=== PATIENT | female | born 1970 | race Caucasian/White ===

== ENCOUNTER 2018-01-29 09:11 | Day surgery (SDC) | payer OTHER ==
[2018-01-29] MEDS ORDERED: Midazolam* 1 MG/ML 2 ML VIAL (2 MG) ONE ×2 (09:52→09:58)
[2018-01-29 10:50] VITALS: BP 108/53
[2018-01-29] MEDS ORDERED: Neomycin/Polymy/Dex OPHTH.OIN* 3.5 GM ONE (11:56)
[2018-01-29] MEDS ORDERED: Povidone Iodine 5% OPTH* 30 ML BTL ONE (11:56)
[2018-01-29] MEDS ORDERED: Phenylephrine 2.5% OPTH.SOL* 2 ML BTL ONE (11:56)
[2018-01-29] MEDS ORDERED: Cyclopentolate 1% OPTH.SOL* 2 ML BTL ONE (11:56)
[2018-01-29] MEDS ORDERED: Tetracaine 0.5% OPTH.SOL 4 ML* 1 DROP BTL ONE (11:56)
[2018-01-29] MEDS ORDERED: Lidocaine 1% MPF* 2 ML VIAL ONE (11:56)
[2018-01-29] MEDS ORDERED: Tropicamide 1% OPTH.SOL* BTL ONE (11:56)
[2018-01-29] MEDS ORDERED: Ketorolac 0.5% OPHTH (NF) 0.5 % 5 ML BTL ONE (11:56)
[2018-01-29] MEDS ORDERED: acetaZOLAMIDE TAB* 250 MG ONE (11:56)
--- NOTE | 2018-01-30 10:07 | OP ---
DATE OF OPERATION: 01/29/18 - [facility] DATE OF : 66 SURGEON: Quinton Inman MD ANESTHESIA: Monitored anesthesia care. PRE-OP DIAGNOSIS: Cataract, right eye. POST-OP DIAGNOSIS: Cataract, right eye. OPERATIVE PROCEDURE: Extracapsular cataract extraction of the right eye with intraocular lens implant. IMPLANTS: SN60WF 25.0 diopter lens to the right eye. COMPLICATIONS: None. DESCRIPTION OF PROCEDURE: The patient was given phenylephrine 2.5% and cyclopentolate 1% eye drops to the operative eye in the preoperative area. The patient was brought to the operating room where a time-out was taken to identify the correct patient, site, and side of surgery. The patient's right eye was prepped and draped in the usual sterile fashion with 5% Betadine. A second time- out was taken to verify the correct patient, site, and side of surgery and correct lens selection. A lid speculum was placed to the right eye. A 1-mm paracentesis blade was used to make a clear corneal incision in the superotemporal position. Preservative-free 1% lidocaine was injected into the anterior chamber. DisCoVisc was then injected into the anterior chamber. A 2.75 mm keratome blade was used to make a triplanar incision at the inferotemporal position. A cystotome initiated a capsulorrhexis which was completed with Utrata forceps in a continuous and curvilinear manner. Hydrodissection of the lens was performed with BSS on a cannula. The lens could be spun in the capsular bag. The phacoemulsification handpiece was used with a [id number] technique to remove the nucleus in its entirety with 6.36 CDE. The I/A handpiece then removed the residual cortical lens material. DisCoVisc was injected to inflate the capsular bag. The planned SN60WF 25.0 diopter lens was injected in the capsular bag. The residual DisCoVisc was removed from the eye with the I/A handpiece. The corneal incisions were hydrated and no leaks occurred at physiologic pressure around 20 mmHg per palpation. The lid speculum was removed and drapes removed. Maxitrol ointment was placed on the surface of the operative eye. An adhesive patch and shield were then placed on the operative eye. The patient was taken to the postoperative area in stable condition. [id number] #: [id number] MTDD
== END 2018-01-29 10:50 | disposition home or self-care (01) ==
LOC: OREAST 09:11 → MERGE 11:15
PROVIDERS: ATTEND Student in an Organized Health Care Education/Training Program
DX: H25.811 Combined forms of age-related cataract, right eye (principal); E11.9 Type 2 diabetes mellitus without complications; Z79.4 Long term (current) use of insulin; I10 Essential (primary) hypertension; Z68.41 Body mass index [BMI] 40.0-44.9, adult; F17.210 Nicotine dependence, cigarettes, uncomplicated
CPT/HCPCS: A9270-GY; J2250; V2632

== ENCOUNTER 2018-02-05 07:07 | Day surgery (SDC) | payer OTHER ==
[~2018-02-05 07:07] MED LIST: Acetaminophen TAB* 325 MG PO PRN; Buffered Lidocaine 0.9% SYRIN* 5 ML/SYR SYRINGE INTRADERM ONE
[2018-02-05] MEDS ORDERED: Midazolam* 1 MG/ML 2 ML VIAL (2 MG) ONE ×2 (07:47→08:06)
[2018-02-05] MEDS ORDERED: acetaZOLAMIDE TAB* 250 MG ONE (07:50)
[2018-02-05] MEDS ORDERED: Cyclopentolate 1% OPTH.SOL* 2 ML BTL ONE (07:50)
[2018-02-05] MEDS ORDERED: Lidocaine 1% MPF* 2 ML VIAL ONE (07:50)
[2018-02-05] MEDS ORDERED: Phenylephrine 2.5% OPTH.SOL* 2 ML BTL ONE (07:50)
[2018-02-05] MEDS ORDERED: Tropicamide 1% OPTH.SOL* BTL ONE (07:50)
[2018-02-05] MEDS ORDERED: Neomycin/Polymy/Dex OPHTH.OIN* 3.5 GM ONE (07:50)
[2018-02-05] MEDS ORDERED: Ketorolac 0.5% OPHTH (NF) 0.5 % 5 ML BTL ONE (07:50)
[2018-02-05] MEDS ORDERED: Tetracaine 0.5% OPTH.SOL 4 ML* 1 DROP BTL ONE (07:50)
[2018-02-05] MEDS ORDERED: Povidone Iodine 5% OPTH* 30 ML BTL ONE (07:50)
[2018-02-05 08:48] VITALS: BP 117/78
--- NOTE | 2018-02-06 04:05 | OP ---
DATE OF OPERATION: 02/05/18 - [facility] DATE OF : 66 SURGEON: Quinton Inman MD PRE-OP DIAGNOSIS: Cataract, left eye. POST-OP DIAGNOSIS: Cataract, left eye. OPERATIVE PROCEDURE: Extracapsular cataract extraction of the left eye with intraocular lens implant. ANESTHESIA: Monitored anesthesia care. IMPLANTS: SN60WF 23.5 diopter lens, left eye. COMPLICATIONS: None. DESCRIPTION OF PROCEDURE: The patient was given phenylephrine 2.5% and cyclopentolate 1% eyedrops to the operative eye in the preoperative area. The patient was brought to the operating room where a time-out was taken to identify the correct patient, site and side of surgery. The patient's left eye was prepped and draped in the usual sterile fashion with 5% Betadine. A second time-out was taken to verify the correct patient, site and side of surgery, and correct lens selection. A lid speculum was placed in the left eye. A 1-mm paracentesis blade was used to make a clear corneal incision in the inferotemporal position. Preservative-free 1% lidocaine was injected into the anterior chamber. DisCoVisc was then injected into the anterior chamber. A 2.75-mm keratome blade was used to make a triplanar incision at the superotemporal position. A cystotome initiated a capsulorrhexis, which was completed with Utrata forceps in a continuous and curvilinear manner. Hydrodissection of the lens was performed with BSS on a cannula. The lens could be spun in the capsular bag. The phacoemulsification handpiece was used with [id number] technique to remove the nucleus in its entirety with 11.44 CDE. The I/A handpiece then removed the residual cortical lens material. DisCoVisc was injected to inflate the capsular bag. The planned SN60WF 23.5 diopter lens was injected in the capsular bag. The residual DisCoVisc was removed from the eye with the I/A handpiece. The corneal incisions were hydrated and no leaks occurred at physiologic pressure around 20 mmHg per palpation. The lid speculum was removed and drapes removed. Maxitrol ointment was placed to the surface of the operative eye. An adhesive patch and shield was placed on the operative eye. The patient was taken to the postoperative area in stable condition. [id number] #: [id number] MTDD
== END 2018-02-05 08:59 | disposition home or self-care (01) ==
LOC: OREAST 07:07 → MERGE 08:15 → OREAST 08:59
PROVIDERS: ATTEND Student in an Organized Health Care Education/Training Program
DX: H25.812 Combined forms of age-related cataract, left eye (principal); E11.9 Type 2 diabetes mellitus without complications; Z79.4 Long term (current) use of insulin; I10 Essential (primary) hypertension; F17.210 Nicotine dependence, cigarettes, uncomplicated; Z68.41 Body mass index [BMI] 40.0-44.9, adult; F41.9 Anxiety disorder, unspecified
CPT/HCPCS: A9270-GY; J2250; V2632

== ENCOUNTER 2018-12-31 15:46 | Emergency (ER) | payer OTHER ==
[2018-12-31] MEDS ORDERED: Albuterol/Ipratropium NEB.SOL* Albuterol 2.5 MG/Ipratropium 0.5 MG 3 ML INH ONE ×2 (16:30→17:30)
[2018-12-31 17:12] LABS: CKMB ng/mL 2.2 ng/mL (0.6-6.3)
[2018-12-31 17:21] LABS: ABS Basophils 0.1 10^3/ul (0-0.2); ABS Eosinophils 0.7 10^3/ul (0-0.6); ABS Monocytes 0.9 10^3/ul (0-0.8); ABS Neutrophils 7.6 10^3/ul (1.5-7.7); ABS Nucleated RBC 0 10^3/ul; Eosinophil % 6.2 %; Hematocrit 48 % (35-47); Lymphocyte % 17.5 %; Mean Corpuscular HGB Conc 33 g/dl (31-36); Mean Corpuscular Hemoglobin 30 pg (27-31); Mean Corpuscular Volume 89 fL (80-97); Mean Platelet Volume 8.1 fL (7.4-10.4); Nucleated Red Blood Cells % 0; Platelet Count 296 10^3/ul (150-450); Red Blood Count 5.42 10^6/ul (4.00-5.40); Red Cell Distribution Width 14 % (10.5-15); White Blood Count 11.4 10^3/ul (3.5-10.8)
[2018-12-31 17:24] LABS: C Reactive Protein 10.41 mg/L (<8.01)
[2018-12-31 17:33] LABS: Activated Partial Thrombo Time 28.8 seconds (26.0-36.3); INR 0.85 (0.77-1.02)
[2018-12-31 17:35] LABS: Influenza A Molecular NEGATIVE (Negative); Influenza B Molecular NEGATIVE (Negative)
[2018-12-31] MEDS ORDERED: NS 0.9% 1000 ML** 1,000 ML IV ONE (18:32)
[2018-12-31 18:53] LABS: Albumin 4.1 g/dL (3.2-5.2); Albumin/Globulin Ratio 1.4 (1-3); BUN/Creatinine Ratio 18.8 (8-20); Calcium 9.4 mg/dL (8.6-10.3); EGFR African American 118.9 (>60); EGFR Non-African American 98.2 (>60); Potassium 4.5 mmol/L (3.5-5.0); Total Bilirubin 0.3 mg/dL (0.2-1.0)
--- NOTE | 2018-12-31 19:07 | ED ---
Respiratory - HPI Summary HPI Summary: Patient complains of coughing until she gags, exertional SOB, chest tightness, lethargy, runny nose, COOMBS, lightheadedness, fatigue 8 days. Denies fever, sore throat, neck stiffness, ear pain, CP, N/V/D, abdominal pain, change in urine, change in BM. Medical history is DM, history of headaches. Positive smoker. - History of Current Complaint Chief Complaint: EDShortnessOfBreath Stated Complaint: SOB Time Seen by Provider: 12/31/18 16:13 Hx Obtained From: Patient Onset/Duration: Gradual Onset Initial Severity: Mild Current Severity: Mild Pain Intensity: 3 Character: Cough (Nonproductive) Sputum Amount: None Aggravating Factor(s): Nothing, Exertion Alleviating Factor(s): Nothing Associated Signs and Symptoms: SOB, Wheezing, Nasal Congestion - Allergy/Home Medications Allergies/Adverse Reactions: Allergies Allergy/AdvReac Type Severity Reaction Status Date / Time MS Bee Venom [Bee Venom] Allergy Swelling Verified 02/05/18 07:27 MS Tetanus Toxoid Allergy Fever Verified 02/05/18 07:27 [Tetanus Toxoid] Tetanus Vaccines and Toxoid Allergy Swelling Verified 02/05/18 07:27 Bee Stings Allergy Swelling Uncoded 02/05/18 07:27 PMH/Surg Hx/FS Hx/Imm Hx Endocrine/Hematology History: Reports: Hx Diabetes - DM2 Denies: Hx Thyroid Disease Cardiovascular History: Denies: Hx Hypertension, Hx Pacemaker/ICD, Other Cardiovascular Problems/ Disorders Respiratory History: Denies: Hx Asthma, Hx Chronic Obstructive Pulmonary Disease (COPD), Other Respiratory Problems/Disorders GI History: Reports: Hx Jaundice - 08/2017, gallbladder sludge,stent placed in gallbladder 09/12,removed 10/13 Denies: Hx Ulcer, Other GI Disorders History: Reports: Other Problems/Disorders - History of UTIs Musculoskeletal History: Reports: Other Musculoskeletal History - mild scoliosis Sensory History: Reports: Hx Cataracts - Bilateral, Hx Contacts or Glasses Denies: Hx Hearing Aid Opthamlomology History: Reports: Hx Cataracts - Bilateral, Hx Contacts or Glasses Neurological History: Reports: Hx Migraine - last on 2 months ago Denies: Other Neuro Impairments/Disorders Psychiatric History: Reports: Hx Anxiety - history of, Hx Depression - history of Denies: Hx Panic Disorder - Surgical History Surgery Procedure, Year, and Place: 1969 - appendectomy. 1995 - Hx Anesthesia Reactions: Yes - States she woke up during her appendectomy Infectious Disease History: No Infectious Disease History: Denies: Hx Hepatitis, Hx Human Immunodeficiency Virus (HIV), Traveled Outside the [place] in Last 30 Days - Family History Known Family History: Positive: Diabetes, Other - no history of UC or crohns - Social History Alcohol Use: Rare Substance Use Type: Reports: None Smoking Status (MU): Heavy Every Day Tobacco Smoker Type: Cigarettes, eCigarettes Amount Used/How Often: 1/2-1 ppd Length of Time of Smoking/Using Tobacco: 33 years Have You Smoked in the Last Year: Yes Review of Systems Constitutional: Negative Eyes: Negative ENT: Negative Cardiovascular: Negative Positive: Shortness Of Breath, Cough Gastrointestinal: Negative Genitourinary: Negative Positive: Myalgia Skin: Negative Positive: Headache Psychological: Normal All Other Systems Reviewed And Are Negative: Yes Physical Exam - Summary Physical Exam Summary: Mild bilateral wheezing. Triage Information Reviewed: Yes Vital Signs On Initial Exam: Initial Vitals Temp Pulse Resp BP Pulse Ox 99.3 F 92 20 121/71 90 12/31/18 16:05 12/31/18 16:05 12/31/18 16:05 12/31/18 16:05 12/31/18 16:05 Vital Signs Reviewed: Yes Appearance: Positive: Well-Appearing Skin: Positive: Warm Head/Face: Positive: Normal Head/Face Inspection Eyes: Positive: Normal ENT: Positive: Normal ENT inspection Neck: Positive: Supple Respiratory/Lung Sounds: Positive: Wheezes Cardiovascular: Positive: Normal Abdomen Description: Positive: Nontender Musculoskeletal: Positive: Normal Neurological: Positive: Normal Psychiatric: Positive: Normal AVPU Assessment: Alert - [place] Coma Scale Best Eye Response: 4 - Spontaneous Best Motor Response: 6 - Obeys Commands Best Verbal Response: 5 - Oriented Coma Scale Total: 15 Diagnostics - Vital Signs Vital Signs Temp Pulse Resp BP Pulse Ox 12/31/18 18:24 87 23 97/66 92 12/31/18 18:00 87 21 87 12/31/18 17:00 97 25 89 12/31/18 16:35 92 18 98 12/31/18 16:17 102 21 92 12/31/18 16:05 99.3 F 92 20 121/71 90 - Laboratory Lab Results: Lab Results 12/31/18 12/31/18 12/31/18 Range/Units 16:41 16:41 17:11 WBC 11.4 H (3.5-10.8) 10^3/ul RBC 5.42 H (4.00-5.40) 10^6/ul Hgb 16.0 (12.0-16.0) g/dl Hct 48 H (35-47) % MCV 89 (80-97) fL MCH 30 (27-31) pg MCHC 33 (31-36) g/dl RDW 14 (10.5-15) % Plt Count 296 (150-450) 10^3/ul MPV 8.1 (7.4-10.4) fL Neut % (Auto) 67.3 % Lymph % (Auto) 17.5 % [place] % (Auto) 7.8 % Eos % (Auto) 6.2 % Baso % (Auto) 1.2 % Absolute Neuts (auto) 7.6 (1.5-7.7) 10^3/ul Absolute Lymphs (auto) 2.0 (1.0-4.8) 10^3/ul Absolute Monos (auto) 0.9 H (0-0.8) 10^3/ul Absolute Eos (auto) 0.7 H (0-0.6) 10^3/ul Absolute Basos (auto) 0.1 (0-0.2) 10^3/ul Absolute Nucleated RBC 0 10^3/ul Nucleated RBC % 0 INR (Anticoag Therapy) 0.85 (0.77-1.02) APTT 28.8 (26.0-36.3) seconds Sodium 134 L (135-145) mmol/L Potassium 4.5 (3.5-5.0) mmol/L Chloride 103 (101-111) mmol/L Carbon Dioxide 17 L (22-32) mmol/L Anion Gap 14 H (2-11) mmol/L BUN 12 (6-24) mg/dL Creatinine 0.64 (0.51-0.95) mg/dL Est GFR ( Amer) 118.9 (>60) Est GFR (Non-Af Amer) 98.2 (>60) BUN/Creatinine Ratio 18.8 (8-20) Glucose 226 H (70-100) mg/dL Lactic Acid (0.5-2.0) mmol/L Calcium 9.4 (8.6-10.3) mg/dL Total Bilirubin 0.30 (0.2-1.0) mg/dL AST 20 (13-39) U/L ALT 18 (7-52) U/L Alkaline Phosphatase 68 (34-104) U/L Total Creatine Kinase 154 (10-223) U/L CK-MB (CK-2) 2.2 (0.6-6.3) ng/mL Troponin I 0.00 (<0.04) ng/mL C-Reactive Protein 10.41 H (<8.01) mg/L B-Natriuretic Peptide (<=100) pg/mL Total Protein 7.0 (6.4-8.9) g/dL Albumin 4.1 (3.2-5.2) g/dL Globulin 3.0 (2-4) g/dL Albumin/Globulin Ratio 1.4 (1-3) Influenza A (Rapid) (Negative) Influenza B (Rapid) (Negative) 12/31/18 12/31/18 12/31/18 Range/Units 17:11 17:11 17:24 WBC (3.5-10.8) 10^3/ul RBC (4.00-5.40) 10^6/ul Hgb (12.0-16.0) g/dl Hct (35-47) % MCV (80-97) fL MCH (27-31) pg MCHC (31-36) g/dl RDW (10.5-15) % Plt Count (150-450) 10^3/ul MPV (7.4-10.4) fL Neut % (Auto) % Lymph % (Auto) % [place] % (Auto) % Eos % (Auto) % Baso % (Auto) % Absolute Neuts (auto) (1.5-7.7) 10^3/ul Absolute Lymphs (auto) (1.0-4.8) 10^3/ul Absolute Monos (auto) (0-0.8) 10^3/ul Absolute Eos (auto) (0-0.6) 10^3/ul Absolute Basos (auto) (0-0.2) 10^3/ul Absolute Nucleated RBC 10^3/ul Nucleated RBC % INR (Anticoag Therapy) (0.77-1.02) APTT (26.0-36.3) seconds Sodium (135-145) mmol/L Potassium (3.5-5.0) mmol/L Chloride (101-111) mmol/L Carbon Dioxide (22-32) mmol/L Anion Gap (2-11) mmol/L BUN (6-24) mg/dL Creatinine (0.51-0.95) mg/dL Est GFR ( Amer) (>60) Est GFR (Non-Af Amer) (>60) BUN/Creatinine Ratio (8-20) Glucose (70-100) mg/dL Lactic Acid 1.3 (0.5-2.0) mmol/L Calcium (8.6-10.3) mg/dL Total Bilirubin (0.2-1.0) mg/dL AST (13-39) U/L ALT (7-52) U/L Alkaline Phosphatase (34-104) U/L Total Creatine Kinase (10-223) U/L CK-MB (CK-2) (0.6-6.3) ng/mL Troponin I (<0.04) ng/mL C-Reactive Protein (<8.01) mg/L B-Natriuretic Peptide 43 (<=100) pg/mL Total Protein (6.4-8.9) g/dL Albumin (3.2-5.2) g/dL Globulin (2-4) g/dL Albumin/Globulin Ratio (1-3) Influenza A (Rapid) Negative (Negative) Influenza B (Rapid) Negative (Negative) Result Diagrams: 12/31/18 17:11 12/31/18 16:41 Lab Statement: Any lab studies that have been ordered have been reviewed, and results considered in the medical decision making process. Disposition - Course Course Of Treatment: Patient complains of coughing until she gags, exertional SOB, chest tightness, lethargy, runny nose, COOMBS, lightheadedness, fatigue 8 days. Denies fever, sore throat, neck stiffness, ear pain, CP, N/V/D, abdominal pain, change in urine, change in BM. Medical history is DM, history of headaches. Positive smoker. Physical exam:. Bilateral wheezing. Otherwise unremarkable. O2 saturation around 90% on room air. Vital signs otherwise within normal limits. WBC 11.4. Labs otherwise unremarkable. Chest x-ray negative. EKG sinus rhythm. Facial lung sounds improved with DuoNeb 2. O2 sats gabby to 94%. Patient has history of smoking for 30 years at half to one pack a day. Likely viral syndrome with COPD exacerbation. Patient is diabetic so no prescription for prednisone. Was given prescription for inhaler. - Diagnoses Provider Diagnoses: Viral syndrome Discharge - Sign-Out/Discharge Documenting (check all that apply): Patient Departure Patient Received Moderate/Deep Sedation with Procedure: No - Discharge Plan Condition: Stable Disposition: HOME Patient Education Materials: Viral Syndrome (ED) Referrals: Melanie Rios MD [Primary Care Provider] - Additional Instructions: Use inhaler as directed. Follow-up with primary care. Return to the ED for any new or worsening symptoms - Billing Disposition and Condition Condition: STABLE Disposition: Home
[2018-12-31] MEDS ORDERED: Albuterol HFA INHALER* 8 gm MDI INH ONE (19:32)
[2018-12-31 19:42] VITALS: BP 102/59
[2018-12-31] MEDS ORDERED: Albuterol HFA INHALER* 8 gm MDI INH SCH (20:00)
== END 2018-12-31 19:42 | disposition home or self-care (01) ==
LOC: ED 15:46
DX: B34.9 Viral infection, unspecified (principal); Z88.7 Allergy status to serum and vaccine; Z91.030 Bee allergy status; F17.210 Nicotine dependence, cigarettes, uncomplicated
CPT/HCPCS: 36415; 71046; 80053; 82550; 82553; 83605; 83880; 84484; 85025; 85610; 85730; 86140; 87040; 93005; 99282; A9270-GY